=== PATIENT | male | born 1945 | race Caucasian/White ===

== ENCOUNTER → 2017-05-25 | Outpatient (CLI) | payer OTHER ==
[~2017-05-25] MED LIST: AMLO1CAP13 PO; CARV6.25 PO
== END | disposition home or self-care (01) ==
LOC: RAH 10:50
PROVIDERS: ATTEND Internal Medicine Cardiovascular Disease
DX: J84.10 Pulmonary fibrosis, unspecified (principal)
CPT/HCPCS: 71250

== ENCOUNTER → 2017-06-16 | Outpatient (CLI) | payer OTHER | END | disposition home or self-care (01) | LOC: SHCH 10:10 | PROVIDERS: ATTEND Internal Medicine Cardiovascular Disease | DX: I65.23 Occlusion and stenosis of bilateral carotid arteries (principal); I25.10 Atherosclerotic heart disease of native coronary artery without angina pectoris; I10 Essential (primary) hypertension; Z95.1 Presence of aortocoronary bypass graft | CPT/HCPCS: 93306; 93880 ==

== ENCOUNTER → 2017-06-30 | Outpatient (CLI) | payer OTHER ==
[~2017-06-30] MED LIST changes: +REGADENOSON 0.4 MG/5 ML PF SYG IVP SCH
== END | disposition home or self-care (01) ==
LOC: SHCH 08:54
PROVIDERS: ATTEND Internal Medicine Cardiovascular Disease
DX: I10 Essential (primary) hypertension (principal)
CPT/HCPCS: 78452; 93017; 96374; A9500 ×2; J2785

== ENCOUNTER 2017-10-30 05:27 | Inpatient (IN) | payer OTHER ==
[~2017-10-30] VITALS: Ht 162.6 cm; Wt 85.0 kg
[2017-10-30] VITALS (23 sets, daily range): BP systolic 108–175; BP diastolic 48–97
[~2017-10-30 05:27] MED LIST changes: -REGADENOSON 0.4 MG/5 ML PF SYG IVP SCH
[2017-10-30] MEDS ORDERED: ASPIRIN 81MG TAB.CHEW ONE (05:37)
[2017-10-30 05:40] LABS: EOSINOPHILS % (AUTO) 2.6 % (0.0-8.0); HEMATOCRIT 51.3 % (42-54); LYMPHOCYTES % (AUTO) 22.4 % (21.0-51.0); MEAN CORPUSCULAR HEMOGLOBIN 30.4 pg (27.0-33.0); MEAN CORPUSCULAR HGB CONC 33.4 g/dL (32.0-36.0); MONOCYTES % (AUTO) 6.4 % (3.0-13.0); NEUTROPHILS % (AUTO) 67.6 % (40.0-77.0); NUCLEATED RED BLOOD CELLS 0.1 % (0.0-0.19); PLATELET COUNT (AUTO) 142 K/uL (130-400); RED BLOOD CELL COUNT(AUTO) 5.64 MIL/uL (4.50-6.20); RED CELL DISTRIBUTION WIDTH 14.6 % (11.0-15.5); WHITE BLOOD COUNT (AUTO) 12.3 K/uL (4.8-10.8)
[2017-10-30] MEDS ORDERED: MORPHINE SULFATE 2 MG/ML 1ML SYG ONE (05:43)
[2017-10-30] MEDS ORDERED: ONDANSETRON HCL 4 MG/2 ML VIAL ONE ×2 (05:43→05:51)
[2017-10-30 05:53] LABS: INR 0.97 (0.85-1.15); PARTIAL THROMBOPLASTIN TIME 23.9 SEC (26.3-35.5); PROTHROMBIN TIME 10.2 SEC (9.6-11.6)
[2017-10-30 05:55] LABS: POTASSIUM 3.8 mmol/L (3.5-5.1)
[2017-10-30 06:01] LABS: ALBUMIN 3.6 g/dL (3.5-5.0); BILIRUBIN,TOTAL 0.5 mg/dL (0.2-1.0); CREATINE KINASE MB 5.3 ng/mL (0.5-3.6); CREATININE 1.6 mg/dL (0.5-1.5); TOTAL PROTEIN, SERUM 7.8 g/dL (6.0-8.3)
[2017-10-30] MEDS ORDERED: LIDOCAINE PF 2% 5ML ABBOJECT ONE (06:04)
[2017-10-30] MEDS ORDERED: ATROPINE SULFATE 0.1 MG/ML 10 ML SYG IVP ONE (06:04)
[2017-10-30] MEDS ORDERED: BIVALIRUDIN 250 MG/VIAL IV ONE (06:04)
[2017-10-30] MEDS ORDERED: LIDOCAINE HCL-MPF 2% 5ML VIAL ONE (06:04)
[2017-10-30] MEDS ORDERED: HEPARIN SODIUM 1000UNIT/ML 10ML VIAL ONE (06:04)
[2017-10-30] MEDS ORDERED: NITROGLYCERIN 5 MG/ML 10 ML VIAL IV ONE (06:04)
[2017-10-30] MEDS ORDERED: IOHEXOL-350 50ML VIAL IV ONE (06:04)
[2017-10-30] MEDS ORDERED: FENTANYL CITRATE PF 50 MCG/1 ML 2ML VIAL ONE (06:05)
[2017-10-30] MEDS ORDERED: MORPHINE SULFATE 4 MG/1ML SYG ONE (06:05)
[2017-10-30] MEDS ORDERED: MIDAZOLAM HCL 1 MG/ML 2ML VIAL ONE (06:05)
[2017-10-30] MEDS ORDERED: IOHEXOL 350 MG/ML 100ML INFUS..BTL IV ONE (06:05)
[2017-10-30] MEDS ORDERED: TICAGRELOR 90 MG TABLET ONE (07:10)
[2017-10-30] MEDS ORDERED: SODIUM CHLORIDE 0.9% 1000ML 1,000 ML IV SCH (07:17)
[2017-10-30] MEDS ORDERED: ATROPINE SULF IJ PRN (07:30)
[2017-10-30] MEDS ORDERED: NITROGLYCERIN 50 MG/D5% WATER 1 BOT IV PRN (07:30)
[2017-10-30] MEDS ORDERED: FUROSEMIDE 10 MG/1 ML SOLN UDC 10 MG/ML UDCUP PO ONE (08:00)
[2017-10-30] MEDS: TICAGRELOR 90 MG TABLET PO SCH ×2 (08:25→20:18)
[2017-10-30] MEDS: CARVEDILOL 6.25 MG TABLET PO SCH ×2 (08:35→20:18)
[2017-10-30] MEDS: PANTOPRAZOLE SODIUM 40 MG TABLET.DR PO SCH (08:37)
[2017-10-30] MEDS: ASPIRIN 81MG TAB.CHEW PO SCH (08:38)
[2017-10-30] MEDS ORDERED: AMLODIPINE-BENAZEPRIL 5-10 MG PO SCH (09:00)
[2017-10-30 09:31] LABS: CREATINE KINASE MB 69.2 ng/mL (0.5-3.6)
[2017-10-30 09:38] LABS: TROPONIN I 17.73 ng/mL (0.00-0.06)
[2017-10-30] MEDS: SODIUM CHLORIDE 0.9% 1000ML 1,000 ML IV SCH (16:39)
[2017-10-30] MEDS: BUPROPION HCL 150 MG TABLET.SA PO SCH (16:59)
[2017-10-30] MEDS: AMLODIPINE BESYLATE 5 MG TAB PO SCH (20:17)
[2017-10-30] MEDS: ATORVASTATIN CALCIUM 20 MG TABLET PO SCH (20:18)
[2017-10-31] VITALS (19 sets, daily range): BP systolic 99–185; BP diastolic 50–105
[2017-10-31 04:23] LABS: BASOPHILS % (AUTO) 1.1 % (0.0-5.0); EOSINOPHILS % (AUTO) 2.2 % (0.0-8.0); HEMATOCRIT 44.1 % (42-54); LYMPHOCYTES % (AUTO) 13.4 % (21.0-51.0); MEAN CORPUSCULAR HEMOGLOBIN 31.3 pg (27.0-33.0); MEAN CORPUSCULAR HGB CONC 34.5 g/dL (32.0-36.0); MEAN CORPUSCULAR VOLUME 90.5 fL (79-99); MONOCYTES % (AUTO) 7.1 % (3.0-13.0); NEUTROPHILS % (AUTO) 76.2 % (40.0-77.0); PLATELET COUNT (AUTO) 132 K/uL (130-400); RED BLOOD CELL COUNT(AUTO) 4.87 MIL/uL (4.50-6.20); RED CELL DISTRIBUTION WIDTH 14.5 % (11.0-15.5); WHITE BLOOD COUNT (AUTO) 10.4 K/uL (4.8-10.8)
[2017-10-31 04:40] LABS: ALBUMIN 3.2 g/dL (3.5-5.0); BILIRUBIN,DIRECT 0.2 mg/dL (0.0-0.3); BILIRUBIN,TOTAL 0.6 mg/dL (0.2-1.0); CREATININE 1.3 mg/dL (0.5-1.5); MAGNESIUM 1.8 mg/dL (1.80-2.40); POTASSIUM 3.5 mmol/L (3.5-5.1); TOTAL PROTEIN, SERUM 6.9 g/dL (6.0-8.3)
[2017-10-31] MEDS: ASPIRIN 81MG TAB.CHEW PO SCH (08:13)
[2017-10-31] MEDS: BUPROPION HCL 150 MG TABLET.SA PO SCH (08:13)
[2017-10-31] MEDS: PANTOPRAZOLE SODIUM 40 MG TABLET.DR PO SCH (08:13)
[2017-10-31] MEDS: CARVEDILOL 6.25 MG TABLET PO SCH ×2 (08:14→20:02)
[2017-10-31] MEDS: TICAGRELOR 90 MG TABLET PO SCH ×2 (08:14→20:02)
[2017-10-31] MEDS: AMLODIPINE BESYLATE 5 MG TAB PO SCH ×2 (08:14→20:02)
[2017-10-31] MEDS: SODIUM CHLORIDE 0.9% 1000ML 1,000 ML IV SCH (19:23)
[2017-10-31] MEDS: ATORVASTATIN CALCIUM 20 MG TABLET PO SCH (20:01)
[2017-11-01] VITALS (12 sets, daily range): BP systolic 117–179; BP diastolic 57–95
[2017-11-01] MEDS: ASPIRIN 81MG TAB.CHEW PO SCH (08:11)
[2017-11-01] MEDS: TICAGRELOR 90 MG TABLET PO SCH ×2 (08:11→19:51)
[2017-11-01] MEDS: AMLODIPINE BESYLATE 5 MG TAB PO SCH ×2 (08:11→19:50)
[2017-11-01] MEDS: CARVEDILOL 6.25 MG TABLET PO SCH ×2 (08:11→19:51)
[2017-11-01] MEDS: PANTOPRAZOLE SODIUM 40 MG TABLET.DR PO SCH (08:11)
[2017-11-01] MEDS: SODIUM CHLORIDE 0.9% 1000ML 1,000 ML IV SCH ×2 (08:12→21:56)
[2017-11-01] MEDS: BUPROPION HCL 150 MG TABLET.SA PO SCH (09:03)
[2017-11-01] MEDS: LOSARTAN 50 MG TABLET PO SCH (09:03)
[2017-11-01] MEDS ORDERED: IOHEXOL 350 MG/ML 100ML INFUS..BTL IV ONE (13:22)
[2017-11-01] MEDS ORDERED: IOHEXOL-350 50ML VIAL IV ONE (13:22)
[2017-11-01] MEDS: ATORVASTATIN CALCIUM 20 MG TABLET PO SCH (19:51)
[2017-11-02 03:47] VITALS: BP 154/90
[2017-11-02 07:49] VITALS: BP 153/74
[2017-11-02 08:31] VITALS: BP 153/74
[2017-11-02] MEDS: PANTOPRAZOLE SODIUM 40 MG TABLET.DR PO SCH (08:31)
[2017-11-02] MEDS: AMLODIPINE BESYLATE 5 MG TAB PO SCH (08:31)
[2017-11-02] MEDS: ASPIRIN 81MG TAB.CHEW PO SCH (08:31)
[2017-11-02] MEDS: TICAGRELOR 90 MG TABLET PO SCH (08:31)
[2017-11-02] MEDS: CARVEDILOL 6.25 MG TABLET PO SCH (08:31)
[2017-11-02] MEDS: BUPROPION HCL 150 MG TABLET.SA PO SCH (08:31)
[2017-11-02] MEDS: LOSARTAN 50 MG TABLET PO SCH (08:31)
[2017-11-02] MEDS ORDERED: ASPI-1005 PO (10:29)
[2017-11-02] MEDS ORDERED: ATOR20TA65 PO (10:29)
[2017-11-02] MEDS ORDERED: PANT40TA PO (10:29)
[2017-11-02] MEDS ORDERED: TICA90TA PO (10:29)
== END 2017-11-02 11:05 | disposition home or self-care (01) | DRG 248 ==
LOC: EDH 05:27 → EDHIP 06:00 → OBSVTOIN 06:00 → 2CH 08:00 → 2AH 11-01 12:42
PROVIDERS: ADMIT Internal Medicine; ATTEND Internal Medicine
PROC: B2101ZZ Fluoroscopy of Single Coronary Artery using Low Osmolar Contrast (ICD-10-PCS; principal; 2017-10-30)
PROC: 02C03ZZ Extirpation of Matter from Coronary Artery, One Artery, Percutaneous Approach (ICD-10-PCS; 2017-10-30)
PROC: 02703DZ Dilation of Coronary Artery, One Artery with Intraluminal Device, Percutaneous Approach (ICD-10-PCS; 2017-10-30)
PROC: B2131ZZ Fluoroscopy of Multiple Coronary Artery Bypass Grafts using Low Osmolar Contrast (ICD-10-PCS; 2017-10-30)
DX: T82.858A Stenosis of other vascular prosthetic devices, implants and grafts, initial encounter (principal); I21.19 ST elevation (STEMI) myocardial infarction involving other coronary artery of inferior wall; N17.9 Acute kidney failure, unspecified; I25.10 Atherosclerotic heart disease of native coronary artery without angina pectoris; I10 Essential (primary) hypertension; F17.210 Nicotine dependence, cigarettes, uncomplicated; E78.5 Hyperlipidemia, unspecified; D75.1 Secondary polycythemia; E66.9 Obesity, unspecified; I44.30 Unspecified atrioventricular block; I71.4 Abdominal aortic aneurysm, without rupture; I72.3 Aneurysm of iliac artery; Z53.9 Procedure and treatment not carried out, unspecified reason; Z95.5 Presence of coronary angioplasty implant and graft; Z68.32 Body mass index [BMI] 32.0-32.9, adult
CPT/HCPCS: 36415; 71045; 75635; 80048; 80053; 80061; 80076; 82550; 82553; 83735; 83874; 83880; 84484; 85025; 85610; 85730; 92941; 93005; 93306; 93455; 99291; C1725; C1769; C1894; J0461; J0583; J1644; J2001; J2250; J2270; J2405; J3010; J3490; J7030; Q9967

== ENCOUNTER 2018-02-23 07:13 | Emergency (ER) | payer OTHER ==
[~2018-02-23 07:13] MED LIST changes: +ASPI-1005 PO; +ATOR20TA65 PO; +PANT40TA PO; +TICA90TA PO
[2018-02-23] MEDS ORDERED: KETOROLAC TROMETHAMINE 30MG/ML ONE (07:39)
[2018-02-23] MEDS ORDERED: SODIUM CHLORIDE 0.9% 500ML 500 ML IV ONE (07:39)
[2018-02-23] MEDS ORDERED: ONDANSETRON HCL 4 MG/2 ML VIAL ONE (07:39)
[2018-02-23 07:41] LABS: EOSINOPHILS % (AUTO) 0.1 % (0.0-8.0); HEMATOCRIT 44.2 % (42-54); MEAN CORPUSCULAR HEMOGLOBIN 30.3 pg (27.0-33.0); MEAN CORPUSCULAR HGB CONC 33.2 g/dL (32.0-36.0); MEAN CORPUSCULAR VOLUME 91.2 fL (79-99); MONOCYTES % (AUTO) 3.1 % (3.0-13.0); NEUTROPHILS % (AUTO) 87.8 % (40.0-77.0); PLATELET COUNT (AUTO) 145 K/uL (130-400); RED BLOOD CELL COUNT(AUTO) 4.84 MIL/uL (4.50-6.20); WHITE BLOOD COUNT (AUTO) 11.2 K/uL (4.8-10.8)
[2018-02-23 08:03] LABS: INR 0.95 (0.85-1.15); PARTIAL THROMBOPLASTIN TIME 24.7 SEC (26.3-35.5)
[2018-02-23 08:12] LABS: CREATININE 1.1 mg/dL (0.5-1.5); POTASSIUM 4.1 mmol/L (3.5-5.1)
[2018-02-23 08:19] LABS: ALBUMIN 4.2 g/dL (3.5-5.0); BILIRUBIN,DIRECT 0.2 mg/dL (0.0-0.3); BILIRUBIN,TOTAL 0.5 mg/dL (0.2-1.0); TOTAL PROTEIN, SERUM 7.9 g/dL (6.0-8.3)
[2018-02-23] MEDS ORDERED: SODIUM CHLORIDE 0.9% 50 ML IV ONE (09:37)
[2018-02-23] MEDS ORDERED: CEFTRIAXONE SODIUM 1 GM ONE (09:37)
[2018-02-23 09:52] LABS: APPEARANCE,URINE Clear (CLEAR); BILIRUBIN,URINE Negative (NEGATIVE); COLOR,URINE Yellow (YELLOW); GLUCOSE, URINE (UA) TRACE mg/dL (NEGATIVE); KETONES,URINE Negative (NEGATIVE); LEUKOCYTE ESTERASE ,URINE Negative (NEGATIVE); NITRATE,URINE Negative (NEGATIVE); OCCULT BLOOD,URINE Small (NEGATIVE); PH,URINE 6.5 (5.0-8.0); PROTEIN,URINE POS 2+ (NEGATIVE)
[2018-02-23 10:03] LABS: BACTERIA,URINE Rare /HPF (None Seen); SQUAMOUS EPITHELIAL CELL,UR Rare /HPF (0-2); WBC,URINE 0-1 /HPF (0-1)
== END 2018-02-23 10:21 | disposition home or self-care (01) ==
LOC: EDH 07:13
DX: K57.32 Diverticulitis of large intestine without perforation or abscess without bleeding (principal); I10 Essential (primary) hypertension; E78.5 Hyperlipidemia, unspecified; Z98.890 Other specified postprocedural states; Z87.891 Personal history of nicotine dependence
CPT/HCPCS: 36415; 74176; 80048; 80076; 81001; 82550; 83690; 84484; 85025; 85610; 85730; 93005; 96361; 96374; 96375; 99284; J0696; J1885; J2405; J7040

== ENCOUNTER → 2020-04-17 | Outpatient (CLI) | payer MEDICARE ==
[~2020-04-17] MED LIST changes: +AMLO-74 PO; -AMLO1CAP13 PO
== END | disposition home or self-care (01) ==
LOC: SHCH 12:36
PROVIDERS: ATTEND Internal Medicine Cardiovascular Disease
DX: I65.23 Occlusion and stenosis of bilateral carotid arteries (principal)
CPT/HCPCS: 93880

== ENCOUNTER → 2020-04-21 | Outpatient (CLI) | payer MEDICARE ==
[~2020-04-21] VITALS: Ht 165.1 cm; Wt 88.0 kg
[~2020-04-21] MED LIST changes: +REGADENOSON 0.4 MG/5 ML PF SYG IVP SCH
== END | disposition home or self-care (01) ==
LOC: SHCH 07:56
PROVIDERS: ATTEND Internal Medicine Cardiovascular Disease
DX: I25.10 Atherosclerotic heart disease of native coronary artery without angina pectoris (principal); I10 Essential (primary) hypertension; R07.89 Other chest pain; R06.00 Dyspnea, unspecified
CPT/HCPCS: 78452; 93017; 96374; A9500 ×2; J2785

== ENCOUNTER → 2020-05-13 | Outpatient (CLI) | payer MEDICARE ==
[~2020-05-13] MED LIST changes: +IOHEXOL 350 MG/ML 100ML INFUS..BTL IV ONE; +IOHEXOL-350 50ML VIAL IV ONE; -REGADENOSON 0.4 MG/5 ML PF SYG IVP SCH
== END | disposition home or self-care (01) ==
LOC: RAH 07:38
PROVIDERS: ATTEND Internal Medicine Cardiovascular Disease
DX: I71.4 Abdominal aortic aneurysm, without rupture (principal); I73.9 Peripheral vascular disease, unspecified; I70.0 Atherosclerosis of aorta; I21.9 Acute myocardial infarction, unspecified; I74.5 Embolism and thrombosis of iliac artery
CPT/HCPCS: 75635; Q9967 ×2

== ENCOUNTER 2022-08-21 18:51 | Inpatient (IN) | payer MEDICARE, OTHER ==
[~2022-08-21] VITALS: Ht 162.6 cm; Wt 85.4 kg
[~2022-08-21 18:51] MED LIST changes: -IOHEXOL 350 MG/ML 100ML INFUS..BTL IV ONE; -IOHEXOL-350 50ML VIAL IV ONE
[2022-08-21 19:45] LABS: BASOPHILS % (AUTO) 0.4 % (0.0-5.0); EOSINOPHILS % (AUTO) 0.6 % (0.0-8.0); HEMATOCRIT 46.7 % (42-54); LYMPHOCYTES % (AUTO) 9.6 % (21.0-51.0); MEAN CORPUSCULAR HEMOGLOBIN 30.7 pg (27.0-33.0); MEAN CORPUSCULAR HGB CONC 33.6 g/dL (32.0-36.0); MEAN CORPUSCULAR VOLUME 91.2 fL (79-99); MONOCYTES % (AUTO) 4.6 % (3.0-13.0); NEUTROPHILS % (AUTO) 84.4 % (40.0-77.0); PLATELET COUNT (AUTO) 123 K/uL (130-400); RED BLOOD CELL COUNT(AUTO) 5.12 MIL/uL (4.50-6.20); RED CELL DISTRIBUTION WIDTH 14.8 % (11.0-15.5); WHITE BLOOD COUNT (AUTO) 13.6 K/uL (4.8-10.8)
[2022-08-21 19:54] LABS: CREATININE 1.9 mg/dL (0.5-1.5)
[2022-08-21 20:04] LABS: ALBUMIN 3.6 g/dL (3.5-5.0); TOTAL PROTEIN, SERUM 7.5 g/dL (6.0-8.3)
[2022-08-21] MEDS ORDERED: CEFTRIAXONE 2GM VIAL IVPB ONE (21:30)
[2022-08-21] MEDS ORDERED: 0.9%NACL 1000ML 1,000 ML IV ONE (21:30)
[2022-08-21] MEDS ORDERED: ACETAMINOPHEN 325 MG TAB PO PRN (23:00)
[2022-08-21] MEDS ORDERED: AZITHROMYCIN 500MG+NS 250ML IVPB SCH (23:00)
[2022-08-21] MEDS ORDERED: ONDANSETRON 4MG INJ IVP PRN (23:00)
[2022-08-21] MEDS ORDERED: CEFEPIME HCL 2 GM VIAL IVPB SCH (23:00)
[2022-08-21] MEDS ORDERED: VANCOMYCIN PROTOCOL PER PHARMACY IV SCH ×2 (23:00→23:30)
[2022-08-21] MEDS ORDERED: VANCOMYCIN 1G/250ML KIT 250 ML IV ONE (23:30)
[2022-08-21 23:31] LABS: APPEARANCE,URINE CLEAR (CLEAR); BILIRUBIN,URINE NEGATIVE (NEGATIVE); COLOR,URINE YELLOW (YELLOW); GLUCOSE, URINE (UA) NEGATIVE (NEGATIVE); KETONES,URINE NEGATIVE (NEGATIVE); LEUKOCYTE ESTERASE ,URINE NEGATIVE Leu/uL (NEGATIVE); NITRATE,URINE NEGATIVE (NEGATIVE); OCCULT BLOOD,URINE NEGATIVE (NEGATIVE); PH,URINE 5.5 (5.0-8.0); PROTEIN,URINE 50 mg/dL (NEGATIVE)
[2022-08-21 23:37] LABS: BACTERIA,URINE FEW /HPF (None Seen); MUCUS,URINE RARE LPF (None Seen)
[2022-08-21] MEDS: DOXYCYCLINE 100MG+NS 250ML IV SCH (23:56)
[2022-08-22] VITALS (7 sets, daily range): BP systolic 141–190; BP diastolic 77–91
[2022-08-22] MEDS ORDERED: CEFEPIME HCL 1 GM VIAL IVPB SCH (00:30)
[2022-08-22] MEDS ORDERED: AMLO1TAB99 PO (02:16)
[2022-08-22] MEDS ORDERED: FOLI1TAB85 PO (02:16)
[2022-08-22] MEDS ORDERED: METO25TA6 PO (02:16)
[2022-08-22] MEDS ORDERED: ISOS30TA11 PO (02:16)
[2022-08-22] MEDS ORDERED: PRED5DRO17 OP (02:16)
[2022-08-22] MEDS ORDERED: OFLO5DRO OD (02:16)
[2022-08-22] MEDS ORDERED: ASPI-1197 PO (02:16)
[2022-08-22] MEDS ORDERED: ATOR40TA71 PO (02:16)
[2022-08-22] MEDS ORDERED: DICL2.5D7 OP (02:16)
[2022-08-22] MEDS ORDERED: NITR0.4T50 SL (02:16)
[2022-08-22] MEDS ORDERED: NITROGLYCERIN 0.4 MG SL TAB SL SCH (03:00)
[2022-08-22 06:17] LABS: BASOPHILS % (AUTO) 0.4 % (0.0-5.0); HEMATOCRIT 45.3 % (42-54); MEAN CORPUSCULAR HEMOGLOBIN 30.9 pg (27.0-33.0); MEAN CORPUSCULAR VOLUME 90.8 fL (79-99); MONOCYTES % (AUTO) 6.3 % (3.0-13.0); PLATELET COUNT (AUTO) 106 K/uL (130-400); RED BLOOD CELL COUNT(AUTO) 4.99 MIL/uL (4.50-6.20); RED CELL DISTRIBUTION WIDTH 14.8 % (11.0-15.5); WHITE BLOOD COUNT (AUTO) 9.3 K/uL (4.8-10.8)
[2022-08-22 06:33] LABS: CREATININE 1.4 mg/dL (0.5-1.5); MAGNESIUM 1.8 mg/dL (1.80-2.40); PHOSPHORUS 2.2 mg/dL (2.5-4.9); POTASSIUM 3.1 mmol/L (3.5-5.1)
[2022-08-22] MEDS ORDERED: POTASSIUM CHLORIDE 10% ELIXIR 20 MEQ/15 ML UDCUP PO PRN (08:00)
[2022-08-22] MEDS ORDERED: POTASSIUM CHLORIDE 20MEQ/100ML 100 ML IV PRN (08:00)
[2022-08-22] MEDS: ASPIRIN 81MG CHEW TAB PO SCH (08:44)
[2022-08-22] MEDS: Vitamin B Complex/Vit C/Folic Acid PO SCH (08:45)
[2022-08-22] MEDS: METOPROLOL TARTRATE 25 MG TAB PO SCH ×2 (08:45→19:59)
[2022-08-22] MEDS: ISOSORBIDE DINITRATE 20MG TAB PO SCH ×2 (08:45→19:59)
[2022-08-22] MEDS: ENOXAPARIN SODIUM 30 MG/0.3 ML SQ SCH (08:45)
[2022-08-22] MEDS: KCL 20 MEQ ERTAB PO PRN ×2 (08:46→12:13)
[2022-08-22] MEDS ORDERED: AMLODIPINE 5 MG TAB PO SCH (09:00)
[2022-08-22] MEDS ORDERED: NON-FORMULARY MEDICATION 1 EACH (Isosorbide Dinitrate 30 MG) PO SCH (09:00)
[2022-08-22] MEDS: OFLOXACIN OPTH OD SCH ×3 (09:00→20:01)
[2022-08-22] MEDS: DICLOFENAC OP SCH ×3 (09:00→20:01)
[2022-08-22] MEDS ORDERED: DICLOFENAC SODIUM OP SCH (09:00)
[2022-08-22] MEDS ORDERED: OFLOXACIN OD SCH (09:00)
[2022-08-22] MEDS: PREDNISOLONE 1% DROPS OP SCH ×3 (11:22→20:00)
[2022-08-22] MEDS: DOXYCYCLINE 100MG+NS 250ML IV SCH ×2 (11:22→23:19)
[2022-08-22] MEDS ORDERED: VANCOMYCIN 1.25 GM/250 ML BAG 250 ML IV SCH (14:00)
[2022-08-22] MEDS: CEFEPIME HCL 1 GM VIAL IVPB SCH (14:23)
[2022-08-22] MEDS ORDERED: NICOTINE 21 MG/ 24 HR PATCH TD SCH (15:30)
[2022-08-22] MEDS ORDERED: VANCOMYCIN 500MG+NS 100ML 100 ML IV SCH (17:00)
[2022-08-22] MEDS: ATORVASTATIN 40 MG TABLET PO SCH (19:59)
[2022-08-22] MEDS: ALPRAZOLAM 0.5 MG TABLET PO PRN (23:19)
[2022-08-23] MEDS: CEFEPIME HCL 1 GM VIAL IVPB SCH ×2 (01:35→13:03)
[2022-08-23] MEDS ORDERED: HALOPERIDOL INJ 5 MG/ML VIAL IM STA (03:22)
[2022-08-23 03:53] VITALS: BP 162/85
[2022-08-23 08:00] VITALS: BP 157/95
[2022-08-23] MEDS: ENOXAPARIN SODIUM 30 MG/0.3 ML SQ SCH (09:07)
[2022-08-23] MEDS: NICOTINE 21 MG/ 24 HR PATCH TD SCH (09:08)
[2022-08-23] MEDS: PREDNISOLONE 1% DROPS OP SCH ×3 (09:08→21:35)
[2022-08-23] MEDS: DICLOFENAC OP SCH ×3 (09:08→21:00)
[2022-08-23] MEDS: OFLOXACIN OPTH OD SCH ×3 (09:08→21:00)
[2022-08-23] MEDS: Vitamin B Complex/Vit C/Folic Acid PO SCH (10:19)
[2022-08-23] MEDS: ISOSORBIDE DINITRATE 20MG TAB PO SCH ×2 (10:19→21:26)
[2022-08-23] MEDS: METOPROLOL TARTRATE 25 MG TAB PO SCH ×2 (10:19→21:26)
[2022-08-23] MEDS: ASPIRIN 81MG CHEW TAB PO SCH (10:20)
[2022-08-23] MEDS: DOXYCYCLINE 100MG+NS 250ML IV SCH ×2 (10:20→23:30)
[2022-08-23 12:00] VITALS: BP 107/57
[2022-08-23] MEDS ORDERED: VANCOMYCIN 1.5 GM/250 ML BAG 250 ML IV SCH (14:00)
[2022-08-23 16:00] VITALS: BP 163/87
[2022-08-23 16:21] LABS: THYROID STIMULATING HORMONE 1.61 uIU/mL (0.36-3.74)
[2022-08-23 19:56] VITALS: BP 169/75
[2022-08-23] MEDS: ATORVASTATIN 40 MG TABLET PO SCH (21:26)
[2022-08-24] VITALS (10 sets, daily range): BP systolic 112–186; BP diastolic 66–93
[2022-08-24] MEDS ORDERED: MAGNESIUM 2GM PREMIX 50ML 50 ML IV PRN (01:00)
[2022-08-24] MEDS: CEFEPIME HCL 1 GM VIAL IVPB SCH ×2 (01:04→13:21)
[2022-08-24] MEDS: HYDRALAZINE 20MG/ML VIAL IV PRN ×2 (04:41→18:25)
[2022-08-24 05:18] LABS: HEMATOCRIT 45.6 % (42-54); MEAN CORPUSCULAR HEMOGLOBIN 30.5 pg (27.0-33.0); MEAN CORPUSCULAR VOLUME 89.6 fL (79-99); RED BLOOD CELL COUNT(AUTO) 5.09 MIL/uL (4.50-6.20); RED CELL DISTRIBUTION WIDTH 14.7 % (11.0-15.5); WHITE BLOOD COUNT (AUTO) 8.9 K/uL (4.8-10.8)
[2022-08-24 05:47] LABS: CREATININE 1.1 mg/dL (0.5-1.5); MAGNESIUM 1.7 mg/dL (1.80-2.40); POTASSIUM 3.4 mmol/L (3.5-5.1)
[2022-08-24] MEDS: KCL 20 MEQ ERTAB PO PRN ×2 (05:57→18:07)
[2022-08-24] MEDS: DICLOFENAC OP SCH ×3 (09:00→20:48)
[2022-08-24] MEDS: OFLOXACIN OPTH OD SCH ×3 (09:00→20:47)
[2022-08-24] MEDS: VANCOMYCIN 750MG VIAL IVPB SCH ×2 (09:23→20:45)
[2022-08-24] MEDS: 0.9% NACL 250ML 250 ML IV SCH ×2 (09:24→20:45)
[2022-08-24] MEDS: ENOXAPARIN SODIUM 30 MG/0.3 ML SQ SCH (09:25)
[2022-08-24] MEDS: Vitamin B Complex/Vit C/Folic Acid PO SCH (09:25)
[2022-08-24] MEDS: HONEY 1 APPL/ML TUBE TP SCH (09:26)
[2022-08-24] MEDS: ASPIRIN 81MG CHEW TAB PO SCH (09:26)
[2022-08-24] MEDS: ISOSORBIDE DINITRATE 20MG TAB PO SCH ×2 (09:26→20:46)
[2022-08-24] MEDS: METOPROLOL TARTRATE 25 MG TAB PO SCH ×2 (09:26→20:46)
[2022-08-24] MEDS: NICOTINE 21 MG/ 24 HR PATCH TD SCH (09:27)
[2022-08-24] MEDS: PREDNISOLONE 1% DROPS OP SCH ×3 (09:29→20:47)
[2022-08-24] MEDS: DOXYCYCLINE 100MG+NS 250ML IV SCH ×2 (11:24→22:49)
[2022-08-24] MEDS: ALPRAZOLAM 0.5 MG TABLET PO PRN (20:45)
[2022-08-24] MEDS: TRAZODONE HCL 50 MG TAB PO SCH (20:46)
[2022-08-24] MEDS: ATORVASTATIN 40 MG TABLET PO SCH (20:46)
[2022-08-24] MEDS ORDERED: RIVASTIGMINE 4.6MG/24HR PATCH TD ONE (22:14)
[2022-08-24] MEDS: RIVASTIGMINE 4.6MG/24HR PATCH TD SCH (22:16)
[2022-08-25] VITALS (7 sets, daily range): BP systolic 125–173; BP diastolic 67–98
[2022-08-25] MEDS: CEFEPIME HCL 1 GM VIAL IVPB SCH ×2 (00:58→13:13)
[2022-08-25 07:36] LABS: POTASSIUM 3.9 mmol/L (3.5-5.1)
[2022-08-25] MEDS: OFLOXACIN OPTH OD SCH ×3 (09:00→20:16)
[2022-08-25] MEDS: DICLOFENAC OP SCH ×3 (09:00→20:16)
[2022-08-25] MEDS: VANCOMYCIN 750MG VIAL IVPB SCH ×2 (09:41→20:14)
[2022-08-25] MEDS: Vitamin B Complex/Vit C/Folic Acid PO SCH (09:41)
[2022-08-25] MEDS: NICOTINE 21 MG/ 24 HR PATCH TD SCH (09:42)
[2022-08-25] MEDS: METOPROLOL TARTRATE 25 MG TAB PO SCH ×2 (09:42→20:14)
[2022-08-25] MEDS: ASPIRIN 81MG CHEW TAB PO SCH (09:42)
[2022-08-25] MEDS: ISOSORBIDE DINITRATE 20MG TAB PO SCH ×2 (09:42→20:15)
[2022-08-25] MEDS: CITALOPRAM 20 MG TABLET PO SCH (09:42)
[2022-08-25] MEDS: ENOXAPARIN SODIUM 30 MG/0.3 ML SQ SCH (09:43)
[2022-08-25] MEDS: HONEY 1 APPL/ML TUBE TP SCH (09:43)
[2022-08-25] MEDS: PREDNISOLONE 1% DROPS OP SCH ×3 (10:34→20:16)
[2022-08-25] MEDS: DOXYCYCLINE 100MG+NS 250ML IV SCH ×2 (11:11→22:32)
[2022-08-25] MEDS: ALPRAZOLAM 0.5 MG TABLET PO PRN ×2 (13:15→22:32)
[2022-08-25] MEDS: 0.9% NACL 250ML 250 ML IV SCH (20:14)
[2022-08-25] MEDS: ATORVASTATIN 40 MG TABLET PO SCH (20:14)
[2022-08-25] MEDS: TRAZODONE HCL 50 MG TAB PO SCH (20:14)
[2022-08-25] MEDS: RIVASTIGMINE 4.6MG/24HR PATCH TD SCH (20:15)
[2022-08-25] MEDS: HYDRALAZINE 20MG/ML VIAL IV PRN (22:33)
[2022-08-26] MEDS: CEFEPIME HCL 1 GM VIAL IVPB SCH (00:48)
[2022-08-26 03:10] VITALS: BP 160/90
[2022-08-26 05:33] LABS: HEMATOCRIT 47.4 % (42-54); MEAN CORPUSCULAR HEMOGLOBIN 30.2 pg (27.0-33.0); MEAN CORPUSCULAR HGB CONC 33.3 g/dL (32.0-36.0); MEAN CORPUSCULAR VOLUME 90.6 fL (79-99); RED BLOOD CELL COUNT(AUTO) 5.23 MIL/uL (4.50-6.20); RED CELL DISTRIBUTION WIDTH 15.6 % (11.0-15.5); WHITE BLOOD COUNT (AUTO) 7.9 K/uL (4.8-10.8)
[2022-08-26 05:45] LABS: CREATININE 1.1 mg/dL (0.5-1.5); MAGNESIUM 1.9 mg/dL (1.80-2.40); POTASSIUM 3.9 mmol/L (3.5-5.1)
[2022-08-26] MEDS ORDERED: MAGNESIUM 2GM PREMIX 50ML 50 ML IV ONE (06:03)
[2022-08-26] MEDS ORDERED: MAGNESIUM 2GM PREMIX 50ML 50 ML IV PRN (06:30)
[2022-08-26 08:00] VITALS: BP 179/89
[2022-08-26] MEDS: OFLOXACIN OPTH OD SCH ×2 (09:00→14:00)
[2022-08-26] MEDS: DICLOFENAC OP SCH ×2 (09:00→14:00)
[2022-08-26] MEDS: ISOSORBIDE DINITRATE 20MG TAB PO SCH (11:01)
[2022-08-26] MEDS: Vitamin B Complex/Vit C/Folic Acid PO SCH (11:03)
[2022-08-26] MEDS: ASPIRIN 81MG CHEW TAB PO SCH (11:03)
[2022-08-26] MEDS: CITALOPRAM 20 MG TABLET PO SCH (11:04)
[2022-08-26] MEDS: METOPROLOL TARTRATE 25 MG TAB PO SCH (11:05)
[2022-08-26] MEDS: RIVASTIGMINE 4.6MG/24HR PATCH TD SCH (11:09)
[2022-08-26] MEDS: NICOTINE 21 MG/ 24 HR PATCH TD SCH (11:09)
[2022-08-26] MEDS: VANCOMYCIN 750MG VIAL IVPB SCH (11:14)
[2022-08-26] MEDS: PREDNISOLONE 1% DROPS OP SCH ×2 (11:17→15:15)
[2022-08-26] MEDS: HONEY 1 APPL/ML TUBE TP SCH (11:20)
[2022-08-26] MEDS: ENOXAPARIN SODIUM 30 MG/0.3 ML SQ SCH (11:43)
[2022-08-26 12:00] VITALS: BP 167/89
[2022-08-26] MEDS: DOXYCYCLINE 100MG+NS 250ML IV SCH (15:20)
[2022-08-26 16:00] VITALS: BP 163/83
== END 2022-08-26 19:30 | disposition home health service (06) | DRG 682 ==
LOC: EDH 18:51 → EDHIP 22:58 → 3BH 08-22 02:50
PROVIDERS: ADMIT Internal Medicine Infectious Disease; ATTEND Internal Medicine Infectious Disease
DX: N17.9 Acute kidney failure, unspecified (principal); J18.9 Pneumonia, unspecified organism; L03.032 Cellulitis of left toe; E11.621 Type 2 diabetes mellitus with foot ulcer; E66.09 Other obesity due to excess calories; Z20.822 Contact with and (suspected) exposure to COVID-19; E78.5 Hyperlipidemia, unspecified; F17.210 Nicotine dependence, cigarettes, uncomplicated; I10 Essential (primary) hypertension; I25.10 Atherosclerotic heart disease of native coronary artery without angina pectoris; L60.2 Onychogryphosis; Z86.73 Personal history of transient ischemic attack (TIA), and cerebral infarction without residual deficits; Z91.81 History of falling; Z95.1 Presence of aortocoronary bypass graft; Z68.32 Body mass index [BMI] 32.0-32.9, adult
CPT/HCPCS: 36415; 70450; 71045; 72125; 72170; 73630; 80048; 80053; 80202; 81001; 82550; 82607; 83605; 83735; 84100; 84132; 84443; 84484; 85025; 85027; 86592; 87040; 87635; 87804; 93005; 97039; C9803; G0378; J0360; J0692; J0696; J1630; J1650; J3370; J3475; J3490; J7030; J7510